=== PATIENT | female | born 2000 | race Caucasian/White ===

== ENCOUNTER → 2021-07-15 09:02 | Outpatient (CLI) | payer OTHER, SELFPAY ==
[2021-07-15 10:14] LABS: Hematocrit 39.8 % (37-47); Hemoglobin 12.9 g/dL (12.0-15.0); Mean Corp Hgb Conc 32.4 g/dL (32-36); Mean Corpuscular Volume 89.4 fL (81-99); Platelet Count 343 K/mm3 (150-450); RBC Distribution Width CV 13.8 % (11.6-14.6); RBC Distribution Width SD 45.2 fl (35.1-43.9); Red Blood Count 4.45 M/mm3 (4.2-5.4); White Blood Count 5.8 K/mm3 (4.4-11.0)
[2021-07-15 10:58] LABS: ALB/GLOB Ratio 1.1 RATIO (0.9-2.4); AST(SGOT) 15 U/L (15-37); Alanine Aminotransfer ALT/SGPT 17 U/L (13-56); Albumin, Serum 4.1 g/dL (3.2-5.0); Alkaline Phosphatase 53 U/L (45-117); Anion Gap 6 (5-15); BUN 10 mg/dL (7-18); BUN/Creat Ratio 14.2 RATIO (10-20); Calcium,Total 9.2 mg/dL (8.5-10.1); Chloride 105 mmol/L (98-107); EST Glomerular Filtration Rate 113 mL/min (>60); Est Glom Filt Rate - Afr Amer 137 mL/min (>60); Globulin 3.6 g/dL (2.2-4.2); Glucose 82 mg/dL (74-106); Potassium 3.6 mmol/L (3.5-5.1); Protein, Total 7.7 g/dL (6.4-8.2); Sodium Level 139 mmol/L (136-145)
== END ==
PROVIDERS: Referring Provider Psychiatry & Neurology Neurology; Visit Provider Psychiatry & Neurology Neurology
DX: G43.909 Migraine, unspecified, not intractable, without status migrainosus (principal)
CPT/HCPCS: 36415; 80053; 85027

== ENCOUNTER → 2021-07-28 06:55 | Outpatient (CLI) | payer OTHER, SELFPAY ==
--- NOTE | 2021-07-28 06:57 | MRI_ITS ---
EXAM: MR HEAD WITHOUT AND WITH INTRAVENOUS CONTRAST : 2001 CLINICAL INDICATION: Migraine Headache TECHNIQUE: Multiplanar and multisequence MR images of the brain were obtained without and with intravenous contrast. This report was created using [employer] technology. CONTRAST: IV dotarem 12ml COMPARISON: None. FINDINGS: BRAIN AND EXTRA-AXIAL SPACES: Unremarkable. No intra- or extra-axial hemorrhage. No evidence of acute infarct. No intracranial mass or mass effect. There is preservation of the childers/white matter interface. Posterior fossa structures are unremarkable. No abnormal contrast enhancement. Ventricles are appropriate for age. No hydrocephalus. Basal cisterns are patent. SELLA: Unremarkable. Normal sella turcica, pituitary gland, infundibular stalk, optic chiasm and hypothalamus. AUDITORY SYSTEM: Unremarkable. The internal auditory canals are patent. BONES/JOINTS: Unremarkable. No discrete lytic or blastic abnormalities. SINUSES: Unremarkable as visualized. Clear. MASTOID AIR CELLS: Unremarkable as visualized. Clear. ORBITS: Unremarkable as visualized. Both globes, extraocular muscles, optic nerves and retrobulbar fat appear unremarkable. VASCULATURE: Unremarkable as visualized. Normal flow voids in the major intracranial circulation. MRI/Brain W/WO Contrast IMPRESSION: Normal exam. at 0816 Reported and signed by: Maynor Suresh MD Electronically Signed: Maynor Suresh MD at 8:14 EST Tel , Service support ,
== END ==
PROVIDERS: Referring Provider Psychiatry & Neurology Neurology; Visit Provider Psychiatry & Neurology Neurology
DX: G43.909 Migraine, unspecified, not intractable, without status migrainosus (principal)
CPT/HCPCS: 70553; A9575

== ENCOUNTER → 2023-07-26 | Outpatient (CLI) | payer OTHER, SELFPAY ==
[2023-07-26 10:20] LABS: Hemoglobin 12.9 g/dL (12.0-15.0); Mean Corp Hgb Conc 31.5 g/dL (32-36); Mean Corpuscular Hgb 28.8 pg (27.0-32.0); Mean Corpuscular Volume 91.5 fL (81-99); Mean Platelet Vol. 10.5 fl (6.2-12.0); Platelet Count 285 K/mm3 (150-450); RBC Distribution Width CV 12.9 % (11.6-14.6); RBC Distribution Width SD 43.3 fl (35.1-43.9); Red Blood Count 4.48 M/mm3 (4.2-5.4); White Blood Count 4.9 K/mm3 (4.4-11.0)
[2023-07-26 10:56] LABS: ALB/GLOB Ratio 1.2 RATIO (0.9-2.4); AST(SGOT) 14 U/L (15-37); Alanine Aminotransfer ALT/SGPT 15 U/L (13-56); Albumin, Serum 3.8 g/dL (3.2-5.0); Alkaline Phosphatase 51 U/L (45-117); Anion Gap 5 (5-15); BUN 12 mg/dL (7-18); Calcium,Total 8.7 mg/dL (8.5-10.1); Chloride 105 mmol/L (98-107); Creatinine, Serum 0.63 mg/dL (0.55-1.02); EST Glomerular Filtration Rate 126 mL/min (>60); Est Glom Filt Rate - Afr Amer 152 mL/min (>60); Globulin 3.3 g/dL (2.2-4.2); Glucose 81 mg/dL (74-106); Potassium 3.6 mmol/L (3.5-5.1); Protein, Total 7.1 g/dL (6.4-8.2); Sodium Level 139 mmol/L (136-145); Thyroid Stim Hormone (TSH) 0.98 uIU/mL (0.358-3.74)
== END | disposition home or self-care (01) ==
LOC: MTLAB 08:57
PROVIDERS: Referring Provider Psychiatry & Neurology Neurology; Visit Provider Psychiatry & Neurology Neurology
DX: R55 Syncope and collapse (principal)
CPT/HCPCS: 36415; 80053; 84443; 85027

== ENCOUNTER → 2023-09-26 | Outpatient (CLI) | payer OTHER, SELFPAY ==
[2023-09-26 09:17] LABS: Hematocrit 40.9 % (37-47); Hemoglobin 13.3 g/dL (12.0-15.0); Mean Corp Hgb Conc 32.5 g/dL (32-36); Mean Corpuscular Hgb 29.3 pg (27.0-32.0); Mean Corpuscular Volume 90.1 fL (81-99); Mean Platelet Vol. 9.5 fl (6.2-12.0); Platelet Count 318 K/mm3 (150-450); RBC Distribution Width CV 13.2 % (11.6-14.6); RBC Distribution Width SD 43.4 fl (35.1-43.9); Red Blood Count 4.54 M/mm3 (4.2-5.4); White Blood Count 8.3 K/mm3 (4.4-11.0)
[2023-09-26 09:29] LABS: Internal QC Validated? YES +Cl - CLEAR BKGD; Pregnancy, Serum, hCG Quali. NEGATIVE Negative
--- OUTSIDE RECORDS SUMMARY | 2023-09-26 09:29 | XMS RPT_ITS | CCD ---
Author Name Unknown Address [address] [place] [address] Organization [facility] Care Team Providers Care Electroplater Name Role Phone BARTOLO ZANDRA Unavailable Unavailable JAYDA ELY Unavailable Unavailable REGAN ASHKAN C Unavailable Unavailable DIAMOND KEARNS Unavailable Unavailable JAYDA ELY Unavailable Unavailable JAYDA ELY Unavailable Unavailable REGAN, ASHKAN C Unavailable Unavailable SELF, REFERRED Unavailable Unavailable JAYDA ELY Unavailable Unavailable REGAN, ASHKAN C Unavailable Unavailable SELF, REFERRED Unavailable Unavailable JAYDA ELY Unavailable Unavailable JAYDA ELY Unavailable Unavailable REGAN, ASHKAN C Unavailable Unavailable SELF, REFERRED Unavailable Unavailable Jayda Ely Primary Care Provider [phone] NONE, NONE Primary Care Unavailable NONE, NONE Consulting Unavailable JOSE MARIA SHAIKH MD, V Admitting Unavailable JOSE MARIA SHAIKH MD, V Attending Unavailable [facility] VISUAL MERCHANDISING SPECIALIST, RENEE S Consulting Unava ilable [facility] VISUAL MERCHANDISING SPECIALIST~[id number], [facility] RENEE S Admitting Unavailable [facility] VISUAL MERCHANDISING SPECIALIST~[id number], [facility] RENEE S Attending Unavailable JONNA WEB MARKETING STRATEGIST~[id number], JONNA DEVRIES Primary Care Unavailable [facility] VISUAL MERCHANDISING SPECIALIST, RENEE S Consulting Unava ilable JONNA WEB MARKETING STRATEGIST, JAYDA Consulting Unavailable JONNA WEB MARKETING STRATEGIST, JAYDA Consulting Unavailable JONNA WEB MARKETING STRATEGIST~[id number], JONNA DEVRIES Primary Care Unavailable MATEO GONZÁLES, DR MORAN Admitting Unavaila ble MATEO DO, DR MORAN Consulting Unavaila ble MATEO DO, DR MORAN Attending Unavaila ble MATEO DO, DR MORAN Consulting Unavaila wayne ELY WEB MARKETING STRATEGIST, JAYDA Consulting Unavailable JONNA WEB MARKETING STRATEGIST, JAYDA Consulting Unavailable WRAY DO~[id number], KAMALA Sanz Attending Unavailable NONE, NONE Consulting Unavailable JONNA WEB MARKETING STRATEGIST~[id number], JONNA DEVRIES Primary Care Unavailable WRAY DO~KAMALA Admitting Unavailable DR MARICRUZ Consulting Unavailable RO WRAY DO Consulting Unavailable RO WRAY DO Consulting Unavailable Allergies Allergy Classification Reported Allergen(s) Allergy Type Date of Onset Reaction(s) Facility (1 source) Levalbuterol; Translations: [LEVALBUTEROL HCL] Drug Allergy [address] [facility] Repository (2 sources) Levalbuterol Drug Allergy 9 Shortness of Breath [facility] (2 sources) Nitrofurantoin Drug Allergy 9 Hives [facility] (1 source) Latex; Translations: [Latex] Food allergy (disorder) [facility] Repository (1 source) Leucine Drug Allergy [facility] Repository (1 source) Levalbuterol Drug Allergy [facility] Repository (1 source) Nitrofurantoin Drug Allergy [facility] Repository (1 source) Poison Sumac Extract Drug allergy (disorder) [facility] Repository Medications Current Medications Medication Drug Class(es) Dates Sig (Normalized) Sig (Original) acetaminophen 325 mg / HYDROcodone bitartrate 5 mg oral tablet (2 sources) Opioid Agonist take 1 tablet by mouth every four hours as needed hydroCODone-aceta minophen 5-325 MG Tab tablet Take 1 tablet by mouth every 4 hours as needed. 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, subsequent encounter] Unclassified (2 sources) LOW BACK PAIN, UNSPECIFIED; Translations: [LOW BACK PAIN, UNSPECIFIED] Onset: 06-09-2023 Past or Other Problems Problem Classification Problem Date Documented Da te Episodic/Chronic Unclassified (1 source) LOW BACK PAIN, UNSPECIFIED; Translations: [LOW BACK PAIN, UNSPECIFIED] Onset: 06-08-2023 Results Test Name Value Interpretation Reference Range Facil ity Vital Signs Date Time Vital Sign Value Performing Clinician Quentin galvez 03-10-2019 00:32-0400 BP Diastolic 72 mm[Hg] [facility] 03-10-2019 00:32-0400 BP Systolic 116 mm[Hg] [facility] 03-10-2019 00:32-0400 Pulse (Heart Rate) 78 /min [facility] 03-10-2019 00:32-0400 Pulse Oximetry 98 % [facility] 03-10-2019 00:32-0400 Respiratory Rate 16 /min [facility] 03-09-2019 23:22-0400 BMI (Body Mass Index) 19.97 kg/m2 [facility] 03-09-2019 23:22-0400 Body weight 54.43 kg [facility] 03-09-2019 23:22-0400 Height 165.1 cm [facility] 03-09-2019 23:21-0400 Body Temperature 98.4 [degF] [facility] Encounters Encounter Date Encounter Type Care Provider Facility Start: 07-07-2023 Encounter for gynecological examination (general) (routine) without abnormal findings KAMALA WRAY DO~[id number] [facility] Start: 07-06-2023 End: 07-06-2023 ambulatory KAMALA WRAY DO~[id number] Facility:[facility] Start: 07-06-2023 End: 07-06-2023 Encounter for gynecological examination (general) (routine) without abnormal findings KAMALA WRAY DO~[id number] Facility:[facility] Start: 06-08-2023 End: 06-08-2023 ambulatory JONNA ELY WEB MARKETING STRATEGIST~[id number] Facility:[facility] Start: 09-29-2022 Encounter for genera l adult medical examination without abnormal findings JOSE MARIA SHAIKH MD [facility] Start: 09-28-2022 End: 09-29-2022 ambulatory RENEE MANCIA APRN Facility:[facility] Start: 09-27-2022 End: 09-28-2022 ambulatory NONE NONE Facility:[facility] Start: 09-27-2022 End: 09-28-2022 Encounter for general adult medical examination without abnormal findings NONE NONE Facility:[facility] Start: 03-09-2019 End: 03-10-2019 Emergency department patient visit Jayda Ely [facility] Start: 03-09-2019 End: 03-09-2019 Letter encounter Provider Nelly Tinsley [facility] Start: 08-06-2018 End: 08-07-2018 Patient encounter procedure JAYDA ELY [facility] Start: 07-04-2018 Patient encounter procedure ASHKAN C REGAN [facility] Start: 12-06-2017 End: 12-07-2017 Patient encounter procedure JAYDA ELY [facility] Start: 12-06-2017 Patient encounter procedure ASHKAN Peralta REGAN [facility] Start: 11-10-2017 Patient encounter procedure ZANDRA MCFARLAND [facility] Plan of Treatment Date Care Activity Detail Author Start: 05-12-2019 Influenza vaccination INFLUENZ A VACCINE (Season Ended) [facility] Start: 2017 Meningococcal conjug ate vaccination MCV4 VACCINE (1 - 2-dose series) [facility] Start: 2016 Vaccination for mi n papillomavirus HPV VACCINE ADOL (1 - Female 3-dose series) [facility] Start: 2014 HIV screening HIV SCREENING DISCUSSION [facility] Start: 2014 Varicella vaccination VARICELL A VACCINE (1 of 2 - 13+ 2-dose series) [facility] Start: 2008 DTAP/TDAP/TD VACCINE (1 - Tdap) DTAP/TDAP/TD VACCINE (1 - Tdap) [facility] Start: 2002 Hepatitis A immunization HEP A VACCINE (1 of 2 - 2-dose series) [facility] Start: 2002 Dzbwchg-xeoue-hlhpag a vaccination MMR VACCINE (1 of 2 - Standard series) [facility] Start: 01-21-2002 Inactivated poliovir us vaccine (product) IPV VACCINE (1 of 3 - 4-dose series) [facility] Start: 2001 Hepatitis B vaccination HEP B VACCINE (1 of 3 - 3-dose primary series) [facility] End: 03-09-2019 Radiography of wrist XR WRIST LEFT 3 VIEWS Imaging STAT One Time for 1 Occurrences starting 03/09/2019 until 03/09/2019 [facility] Payers Date Payer Category Payer [employer] ( and others) JAMEEL MARSHALL xxxxxxxxxxx 2019-Present xxxxxxxxxxx [id number] 2017 [employer] ( and others) [id number] 2001 Unknown [id number] 2001 Unknown [id number] 2001 Unknown [id number] 1965 Unknown [id number] 1965 Unknown [id number] 1965 Unknown [id number] 1965 Unknown [id number] 1965 Unknown [id number] 1965 Unknown [id number] 1959 Self-pay [employer] ( [employer] others) [id number] Social History Date Type Detail Facility Start: 03-09-2019 Tobacco smoking status NHIS Never [facility] Start: 03-09-2019 History SDOH Alcohol Frequency 1 [facility] Sex Assigned At Not on file [facility] Summary Purpose Family History No Family History Records FoundNo Family History Records FoundNo Family History Records Found Advance Directives No Advanced Directives Records FoundNo Advanced Directives Records FoundNo Advanced Directives Records Found Discharge Instructions * Attachments The following attachments cannot be sent through Care Everywhere. 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 This clinical summary was aggregated from multiple sources. Caution should be exercised in using it in the provision of clinical care. This summary normalizes information from multiple sources, and as a consequence, information in this document may materially change the coding, format and clinical context of patient data. In addition, data may be omitted in some cases. CLINICAL DECISIONS SHOULD BE BASED ON THE PRIMARY CLINICAL RECORDS. [employer] provides no warranty or guarantee of the accuracy or completeness of information in this document.
[2023-09-26 09:30] LABS: Anion Gap 4 (5-15); BUN 14 mg/dL (7-18); BUN/Creat Ratio 18.2 RATIO (10-20); Calcium,Total 8.9 mg/dL (8.5-10.1); Chloride 109 mmol/L (98-107); Creatinine, Serum 0.77 mg/dL (0.55-1.02); EST Glomerular Filtration Rate 100 mL/min (>60); Est Glom Filt Rate - Afr Amer 121 mL/min (>60); Glucose 85 mg/dL (74-106); Potassium 3.7 mmol/L (3.5-5.1); Sodium Level 138 mmol/L (136-145)
--- NOTE | 2023-09-26 17:52 | PCM.TILTTABL ---
Staff Staff: Corazon Noyola and Emely Walton Summary Pre Test Resting HR: 93 Pre Test Resting BP: 102/76 Minimum Test HR: 64 Maximum Test HR: 140 Minimum Test BP: 0/0 Maximum Test BP: 121/82 Physician Tilt Table Report Patient's Physicians Primary Care Physician: Jayda Ely NP Indications/Diagnosis: Syncope Procedure Comments: The patient was brought to the noninvasive lab in the postabsorptive nonsedated state. Informed consent was obtained. Initial EKG and blood pressure were obtained as noted above. Heart rate of 93 bpm and blood pressure 102/76 mmHg with EKG demonstrating sinus rhythm. The patient was then placed in the 70 degree head upright tilt position with increase in the heart rate 220 bpm and a blood pressure of 113/81 mmHg. Patient complained of being nauseated hot lightheaded but with no significant changes to her heart rate or blood pressure. The patient was then put back in the supine position and administered sublingual nitroglycerin per protocol. She was put in the 70 degree head upright tilt position with a heart rate going up to 240 bpm and a blood pressure of 100/64 mmHg. Her heart rate subsequently went up to 251 bpm with a blood pressure slowly declining until it was unable to be obtained. The heart rate also subsequently declined at that point. To a andrea of 64 bpm. Patient became unconscious for approximately 3 seconds and then after she was put flat symptoms improved with heart rate and blood pressure improving. Final blood pressure was 104/62 mmHg after receiving intravenous fluid and a heart rate of 92 bpm. Summary: Head upright tilt position table test with evidence of vasodepressor syncope.
[2023-09-26 17:56] VITALS: BP 0/0; BP 102/76; BP 121/82
== END | disposition home or self-care (01) ==
PROVIDERS: Referring Provider Psychiatry & Neurology Neurology; Visit Provider Psychiatry & Neurology Neurology
DX: R55 Syncope and collapse (principal); I95.9 Hypotension, unspecified
CPT/HCPCS: 36415; 80048; 84703; 85027; 93660; J7040